=== PATIENT | male | born 1970 | race Caucasian/White ===

== ENCOUNTER 2020-12-04 18:33 | Emergency (ER) | payer OTHER ==
[~2020-12-04] VITALS: Ht 180.3 cm; Wt 86.4 kg
[2020-12-04] MEDS ORDERED: ACETAMINOPHEN 500 MG TABLET PO ONE (19:30)
[2020-12-04 20:31] VITALS: BP 140/91
== END 2020-12-04 21:06 ==
LOC: EMS 18:33
DX: S02.2XXA Fracture of nasal bones, initial encounter for closed fracture (principal); F12.90 Cannabis use, unspecified, uncomplicated; F15.90 Other stimulant use, unspecified, uncomplicated; Z87.891 Personal history of nicotine dependence; Y04.0XXA Assault by unarmed brawl or fight, initial encounter; Y93.89 Activity, other specified; Y92.89 Other specified places as the place of occurrence of the external cause; Y99.8 Other external cause status
CPT/HCPCS: 70450; 70486; 99285

== ENCOUNTER 2021-06-03 15:49 | Inpatient (IN) | payer OTHER ==
[~2021-06-03] VITALS: Ht 180.3 cm; Wt 90.0 kg
[2021-06-03 18:16] LABS: BASOPHILS % (AUTO) 0.6 % (0.0-2.0); EOSINOPHILS % (AUTO) 1.8 % (1.0-6.0); HEMATOCRIT 44.9 % (41-53); HEMOGLOBIN 15.2 g/dL (13.5-17.5); LYMPHOCYTES # (AUTO) 1.8 K/uL (1.0-4.8); LYMPHOCYTES % (AUTO) 16.4 % (22.0-44.0); MEAN CORPUSCULAR HEMOGLOBIN 28.7 pg (26.0-34.0); MEAN CORPUSCULAR HGB CONC 33.8 G/dL (31.0-37.0); MEAN CORPUSCULAR VOLUME 85 fL (80-100); MONOCYTES # (AUTO) 0.9 K/uL (0.1-1.0); MONOCYTES % (AUTO) 7.9 % (2.0-9.0); NEUTROPHILS # (AUTO) 8.1 K/uL (1.8-7.7); NEUTROPHILS % (AUTO) 73.3 % (40.0-70.0); PLATELET COUNT (AUTO) 301 K/uL (150-450); RED BLOOD CELL COUNT(AUTO) 5.29 MIL/uL (4.50-5.90); RED CELL DISTRIBUTION WIDTH 13.1 % (11.5-14.5)
[2021-06-03 18:39] LABS: ANION GAP 12 mmol/L (8-16); CALCIUM, TOTAL 9.2 mg/dL (8.8-10.5); CARBON DIOXIDE 30 mmol/L (22-29); CHLORIDE 101 mmol/L (98-107); CREATININE 0.98 mg/dL (0.60-1.30); GLOMERULAR FILTR. RATE CALC > 60 mL/min (>60); GLUCOSE,RANDOM 92 mg/dL (70-110); POTASSIUM 4.1 mmol/L (3.5-5.1); SODIUM SERUM 143 mmol/L (136-145); UREA NITROGEN, BLOOD 11 mg/dL (7-18)
[2021-06-03 18:41] LABS: D-DIMER 0.45 mg/L FEU (0.00-0.50)
[2021-06-03 18:45] LABS: ALANINE AMINOTRANSFERASE 28 U/L (12-78); ALBUMIN 4.1 g/dL (3.4-5.0); ALKALINE PHOSPHATASE 74 U/L (46-116); ASPARTATE AMINOTRANSFERASE 16 U/L (15-37); BILIRUBIN,TOTAL 0.4 mg/dL (0.1-1.0); TOTAL PROTEIN, SERUM 8.8 g/dL (6.4-8.2)
[2021-06-03 18:48] LABS: LACTIC ACID 0.6 mmol/L (0.4-2.0)
[2021-06-03] MEDS ORDERED: VANCOMYCIN HCL 1.5 GM in DEXTROSE 5%-WATER 250 ML IV ONE (19:15)
[2021-06-03] MEDS ORDERED: MAGNESIUM HYDROXIDE SUSPENSION 30 ML UDCUP PO PRN (20:00)
[2021-06-03] MEDS ORDERED: ZOLPIDEM TARTRATE 5 MG TABLET PO PRN (20:00)
[2021-06-03] MEDS ORDERED: HYDROCODONE/ACETAMINOPHEN 5-325 MG TABLET PO ONE (20:30)
[2021-06-03 22:08] LABS: COVID AG,FIA SOURCE NASOPHARYNGEAL
[2021-06-03 22:27] LABS: ERYTHROCYTE SEDIMENTATION RATE 23 MM/HR (0-15)
[2021-06-04] MEDS: OxyCODONE HCL/ACETAMINOPHEN 5-325 MG TABLET PO PRN ×5 (02:44→22:40)
[2021-06-04] MEDS: ACETAMINOPHEN 325 MG TABLET PO PRN ×2 (05:38→22:39)
[2021-06-04] MEDS ORDERED: GADOTERATE MEGLUMINE 10 MMOL/20 ML VIAL IVP ONE (08:03)
[2021-06-04] MEDS: VANCOMYCIN HCL 1.25 GM in DEXTROSE 5%-WATER 250 ML IV SCH ×2 (08:25→20:08)
[2021-06-04] MEDS: FAMOTIDINE 20 MG TABLET PO SCH (08:26)
[2021-06-04 09:52] LABS: BASOPHILS % (AUTO) 0.4 % (0.0-2.0); HEMATOCRIT 41.8 % (41-53); HEMOGLOBIN 14.2 g/dL (13.5-17.5); LYMPHOCYTES # (AUTO) 1.5 K/uL (1.0-4.8); LYMPHOCYTES % (AUTO) 18.4 % (22.0-44.0); MEAN CORPUSCULAR HEMOGLOBIN 28.7 pg (26.0-34.0); MEAN CORPUSCULAR HGB CONC 34.1 G/dL (31.0-37.0); MEAN CORPUSCULAR VOLUME 84 fL (80-100); MONOCYTES # (AUTO) 0.7 K/uL (0.1-1.0); MONOCYTES % (AUTO) 9.1 % (2.0-9.0); NEUTROPHILS # (AUTO) 5.7 K/uL (1.8-7.7); NEUTROPHILS % (AUTO) 70.1 % (40.0-70.0); PLATELET COUNT (AUTO) 276 K/uL (150-450); RED BLOOD CELL COUNT(AUTO) 4.96 MIL/uL (4.50-5.90); RED CELL DISTRIBUTION WIDTH 13.1 % (11.5-14.5)
[2021-06-04 20:45] VITALS: BP 146/92
[2021-06-05] MEDS: OxyCODONE HCL/ACETAMINOPHEN 5-325 MG TABLET PO PRN ×2 (04:13→08:41)
[2021-06-05 05:16] VITALS: BP 122/76
[2021-06-05 06:55] LABS: ANION GAP 7 mmol/L (8-16); CARBON DIOXIDE 32 mmol/L (22-29); CHLORIDE 103 mmol/L (98-107); CREATININE 1.09 mg/dL (0.60-1.30); GLOMERULAR FILTR. RATE CALC > 60 mL/min (>60); POTASSIUM 4.9 mmol/L (3.5-5.1); SODIUM SERUM 142 mmol/L (136-145); UREA NITROGEN, BLOOD 11 mg/dL (7-18); VANCOMYCIN,RANDOM 8.7 mcg/mL (25.0-50.0)
[2021-06-05 07:03] LABS: GLUCOSE,RANDOM 101 mg/dL (70-110)
[2021-06-05 08:03] VITALS: BP 130/84
[2021-06-05] MEDS ORDERED: SODIUM CHLORIDE 0.9% 250 ML IV ONE (08:37)
[2021-06-05] MEDS: FAMOTIDINE 20 MG TABLET PO SCH (08:38)
[2021-06-05] MEDS: VANCOMYCIN HCL 1.25 GM in DEXTROSE 5%-WATER 250 ML IV SCH (08:38)
[2021-06-05] MEDS ORDERED: FAMO20 PO (12:32)
[2021-06-05] MEDS ORDERED: ACET-2247 PO (12:33)
[2021-06-05] MEDS ORDERED: MOM30 PO (12:33)
[2021-06-05] MEDS: ACETAMINOPHEN 325 MG TABLET PO PRN ×2 (13:33→17:46)
== END 2021-06-05 19:09 | DRG 558 ==
LOC: EMS 15:51 → 6S 06-04 15:24
PROVIDERS: ADMIT Internal Medicine; ATTEND Internal Medicine
DX: M65.9 Synovitis and tenosynovitis, unspecified (principal); L03.113 Cellulitis of right upper limb; M84.441A Pathological fracture, right hand, initial encounter for fracture; M19.031 Primary osteoarthritis, right wrist; Z20.822 Contact with and (suspected) exposure to COVID-19; Z79.899 Other long term (current) drug therapy
CPT/HCPCS: 29280; 73223; 80048; 80053; 80202; 83605; 85025; 85379; 85610; 85651; 85730; 87040; 87081; 93971; 99285; J3370; J7050; J7060; Q9967